=== PATIENT | male | born 1975 | race Caucasian/White ===

== ENCOUNTER 2019-05-26 17:53 | Emergency (ER) | payer OTHER ==
[2019-05-26 18:27] VITALS: BP 133/101; PULSE 104; TEMP 98.2
--- NOTE | 2019-05-26 18:28 | PDOC ---
Rapid Medical Evaluation Time Seen by Provider: 05/26/19 18:25 Medical Evaluation: Allergies Allergy/AdvReac Type Severity Reaction Status Date / Time No Known Allergies Allergy Verified 04/14/11 10:33 05/26/19 18:25 HPI: COVID-19 CDC guideline data points: The patient is a 44-year-old male with suspectedCOVID-19 with associated symptoms of subjective fever, dry cough, SOB, for one week complicated by asthma (no hospitalizations, albuterol MDI prn, HTN. ROS: NEGATIVE: chest pain, lightheadedness, dizziness, nausea, vomiting and diarrhea. Other 12 point ROS reviewed and negative. Exam: General: NAD, Well-Appearing, Awake, Alert Oriented x3. Vital signs stable. ENT: No rhinorrhea or nasal congestion. Neck: FROM, no midline tenderness. Lungs: Scant wheezes. Patient is able to speak in full sentences. Heart: HR: Regular rhythm, S1-S2 present, no murmurs rubs or gallops. Abdomen: Non-distended. MSK/Extremities: No decrease ROM, No obvious deformities. No obvious cyanosis noted. Neuro: Normal Gait, Cranial Nerves II through XII Grossly Intact. Skin: No obvious rashes, bruising. Color Normal Appearing. Assessment/Plan: [Cough/fever] Known COVID exposure in building. Does not meet testing criteria at this time. ASSESSMENT: Cough/COVID symptoms in asthma. Treatment: Albuterol/ipratropium neb CXR Tent for further eval Discharge Disposition - Diagnosis Cough - Discharge Dispostion Last Admission D/C Date: 01/31/01 - Referrals - Patient Instructions - Post Discharge Activity
[2019-05-26] MEDS ORDERED: ALBUTEROL SO4 2.5/IPRATROPIUM 0.5 INH SOL 3 ML VIAL.NEB. NEB ONE (18:29)
--- NOTE | 2019-05-26 20:03 | PDOC ---
*Physical Exam - Vital Signs Last Vital Signs Temp Pulse Resp BP Pulse Ox 98.2 F 104 H 18 133/101 H 100 05/26/19 18:25 05/26/19 18:25 05/26/19 18:25 05/26/19 18:25 05/26/19 18:25 ED Treatment Course - Medications Given in the ED: ED Medications Discontinued Medications Generic Name Dose Route Start Last Admin Trade Name Pritesh PRN Reason Stop Dose Admin Albuterol/Ipratropium 1 amp 05/26/19 18:29 05/26/19 18:49 Duoneb - NEB 05/26/19 18:30 1 amp ONCE ONE Administration Medical Decision Making - Medical Decision Making 05/26/19 20:02 CXR- ?infiltrate to right middle lobe. repeat lung exam reveals clear lungs. [facility] for Z-collins. 05/26/19 21:28 Discharge - Discharge Information Problems reviewed: Yes Clinical Impression/Diagnosis: Cough Condition: Improved Disposition: HOME - Admission No - Additional Discharge Information Prescriptions: Azithromycin [Zithromax 250mg Tablets -] 250 mg PO UTDICT #6 tab - Follow up/Referral - Patient Discharge Instructions Patient Printed Discharge Instructions: [facility]-Coronavirus Instructions Additional Instructions: You were seen for your cough and possible Coronavirus (COVID-19) [facility] to make an appointment at or you can call [facility] at from 8:30 AM to 6 PM; or you can visit the [facility] website: [email or web address] for more information about testing at the [facility]. Take Tylenol 650 mg every 6 hours as needed for fever or pain. You may take Robitussin or other nzfy-lat-oxxyexd cough syrup. Follow the dosing instructions on the bottle. Take azithromycin as directed. Warm tea, honey, and salt water gargles may help your symptoms. Please take precautions and self quarantine for 2 weeks and follow-up with your primary care doctor and the Department of Health. Return to the nearest emergency department for shortness of breath, difficulty breathing, chest pain, or if you have any changes in your symptoms. - Post Discharge Activity Work/Back to School Note: Back to Work
== END 2019-05-26 20:10 | disposition home or self-care (01) ==
LOC: JER 17:53
DX: R05 Cough (principal); Z20.828 Contact with and (suspected) exposure to other viral communicable diseases
CPT/HCPCS: 71045-TC-FY; 99283-25